=== PATIENT | male | born 1985 | race Hispanic/Latino ===

== ENCOUNTER 2024-09-07 20:58 | Emergency (ER) | payer OTHER ==
[~2024-09-07] VITALS: Ht 175.3 cm; Wt 136.0 kg
[2024-09-07] MEDS ORDERED: KETOROLAC TROMETHAMINE 60 MG/2 ML VIAL IM ONE (21:00)
[2024-09-07] MEDS ORDERED: diazePAM 10 MG/2 ML SYR IM ONE (21:15)
[2024-09-07] MEDS ORDERED: CYCLOBENZAPRINE10 MG PO (21:38)
[2024-09-07] MEDS ORDERED: PREDNISONE20 MG PO (21:38)
[2024-09-07 22:17] VITALS: BP 148/86
== END 2024-09-07 22:17 | disposition home or self-care (01) ==
LOC: ED 20:58
DX: S83.92XA Sprain of unspecified site of left knee, initial encounter (principal); M25.462 Effusion, left knee; X58.XXXA Exposure to other specified factors, initial encounter
CPT/HCPCS: 73560; 96372; 99283; J1885; J3360